=== PATIENT | male | born 1955 | race Caucasian/White ===

== ENCOUNTER 2016-07-31 22:06 | Inpatient (IN) | payer MEDICARE, SELFPAY ==
[~2016-07-31] VITALS: Ht 172.7 cm; Wt 77.5 kg
[~2016-07-31 22:06] MED LIST: ASPI81 PO; CARB200T6 PO; CLON.1 PO; CLON2 PO; LEVE500T53 PO; QUET300T2 PO
[2016-08-01 02:36] VITALS: BP 139/62
[2016-08-01] MEDS ORDERED: ZOLPIDEM TARTRATE 10 MG TABLET PO PRN (03:15)
[2016-08-01] MEDS: HALOPERIDOL 5 MG TABLET PO PRN ×2 (07:30→11:37)
[2016-08-01] MEDS: LORazepam 2 MG TABLET PO PRN ×2 (07:30→11:37)
[2016-08-01 08:14] VITALS: BP 148/67
[2016-08-01] MEDS: CarBAMazepine 200 MG TABLET PO SCH ×2 (10:46→16:25)
[2016-08-01] MEDS: ASPIRIN 81 MG EC TABLET PO SCH (10:46)
[2016-08-01] MEDS: LevETIRAcetam 500 MG TABLET PO SCH ×2 (10:46→16:25)
[2016-08-01] MEDS ORDERED: TraMADol HCL 50 MG TABLET PO PRN (15:00)
[2016-08-01] MEDS ORDERED: IBUPROFEN 600 MG TABLET PO PRN (15:00)
[2016-08-01] MEDS ORDERED: ACETAMINOPHEN 325 MG TABLET PO PRN (15:00)
[2016-08-01 16:00] VITALS: BP 129/72
[2016-08-01] MEDS: ClonazePAM 1 MG TABLET PO SCH ×2 (17:38→20:43)
[2016-08-01] MEDS: QUEtiapine FUMARATE 300 MG TABLET PO SCH (20:43)
[2016-08-02 06:34] VITALS: BP 140/80
[2016-08-02 08:39] VITALS: BP 137/88
[2016-08-02] MEDS: LevETIRAcetam 500 MG TABLET PO SCH ×2 (09:09→16:24)
[2016-08-02] MEDS: ClonazePAM 1 MG TABLET PO SCH ×2 (09:10→20:48)
[2016-08-02] MEDS: ASPIRIN 81 MG EC TABLET PO SCH (09:10)
[2016-08-02] MEDS: CarBAMazepine 200 MG TABLET PO SCH ×2 (09:10→16:24)
[2016-08-02] MEDS: LamoTRIgine 25 MG TABLET PO SCH ×2 (11:14→16:24)
[2016-08-02 16:00] VITALS: BP 135/79
[2016-08-02] MEDS: QUEtiapine FUMARATE 300 MG TABLET PO SCH (20:48)
[2016-08-03 04:43] VITALS: BP 130/68
[2016-08-03 08:29] VITALS: BP 135/85
[2016-08-03] MEDS ORDERED: LAMO25TA66 PO (08:46)
[2016-08-03] MEDS: CarBAMazepine 200 MG TABLET PO SCH (08:51)
[2016-08-03] MEDS: ASPIRIN 81 MG EC TABLET PO SCH (08:51)
[2016-08-03] MEDS: LamoTRIgine 25 MG TABLET PO SCH (08:51)
[2016-08-03] MEDS: LevETIRAcetam 500 MG TABLET PO SCH (08:52)
[2016-08-03] MEDS: ClonazePAM 1 MG TABLET PO SCH (08:52)
== END 2016-08-03 10:00 | disposition home or self-care (01) | DRG 885 ==
LOC: B3A 08-01 03:17
DX: F25.1 Schizoaffective disorder, depressive type (principal); R45.851 Suicidal ideations; D64.9 Anemia, unspecified; F15.90 Other stimulant use, unspecified, uncomplicated; G40.909 Epilepsy, unspecified, not intractable, without status epilepticus; I10 Essential (primary) hypertension; M17.9 Osteoarthritis of knee, unspecified; Z79.899 Other long term (current) drug therapy; Z80.0 Family history of malignant neoplasm of digestive organs; Z80.1 Family history of malignant neoplasm of trachea, bronchus and lung
CPT/HCPCS: 87081

== ENCOUNTER 2017-01-14 14:15 | Inpatient (IN) | payer MEDICARE, SELFPAY ==
[~2017-01-14] VITALS: Ht 172.7 cm; Wt 82.9 kg
[~2017-01-14 14:15] MED LIST changes: -CLON.1 PO; +LAMO25TA66 PO
[2017-01-14 14:37] LABS: GLUCOSE,POINT OF CARE 106 MG/DL (70-110)
[2017-01-14 15:05] LABS: BASOPHILS % (AUTO) 0.5 % (0.0-2.0); EOSINOPHILS % (AUTO) 1.1 % (1.0-6.0); HEMATOCRIT 37.3 % (41-53); HEMOGLOBIN 12.9 g/dL (13.5-17.5); LYMPHOCYTES # (AUTO) 0.8 K/uL (1.0-4.8); LYMPHOCYTES % (AUTO) 16.7 % (22.0-44.0); MEAN CORPUSCULAR HGB CONC 34.5 G/dL (31.0-37.0); MEAN CORPUSCULAR VOLUME 96 fL (80-100); MONOCYTES # (AUTO) 0.4 K/uL (0.1-1.0); MONOCYTES % (AUTO) 7.3 % (2.0-9.0); NEUTROPHILS # (AUTO) 3.6 K/uL (1.8-7.7); NEUTROPHILS % (AUTO) 74.4 % (40.0-70.0); PLATELET COUNT (AUTO) 374 K/uL (150-450); RED CELL DISTRIBUTION WIDTH 13.1 % (11.5-14.5); WHITE BLOOD COUNT (AUTO) 4.9 K/uL (4.5-11.0)
[2017-01-14 15:13] LABS: ANION GAP 9 mmol/L (8-16); CALCIUM, TOTAL 8.4 mg/dL (8.8-10.5); CARBON DIOXIDE 28 mmol/L (22-29); CHLORIDE 106 mmol/L (98-107); CREATININE 1.23 mg/dL (0.60-1.30); GLOMERULAR FILTR. RATE CALC 60 mL/min (>60); POTASSIUM 4.2 mmol/L (3.5-5.1); SODIUM SERUM 143 mmol/L (136-145); UREA NITROGEN, BLOOD 26 mg/dL (7-18)
[2017-01-14 15:20] LABS: ALANINE AMINOTRANSFERASE 21 U/L (12-78); ALBUMIN 3.4 g/dL (3.4-5.0); ASPARTATE AMINOTRANSFERASE 22 U/L (15-37); BILIRUBIN,TOTAL 0.4 mg/dL (0.1-1.0); TOTAL PROTEIN, SERUM 6.6 g/dL (6.4-8.2)
[2017-01-14 15:21] LABS: ACETAMINOPHEN < 2 mcg/mL (10-30)
[2017-01-14 15:37] LABS: SALICYLATE < 2.8 mg/dL (2.8-20.0)
[2017-01-14] MEDS ORDERED: KETOROLAC TROMETHAMINE 30 MG/ML VIAL IVP ONE (18:00)
[2017-01-14] MEDS: DIAZEPAM 10 MG TABLET PO PRN (21:40)
[2017-01-14] MEDS: QUEtiapine FUMARATE 100 MG TABLET PO PRN (22:18)
[2017-01-14] MEDS: ZOLPIDEM TARTRATE 10 MG TABLET PO PRN (22:19)
[2017-01-14] MEDS ORDERED: ACETAMINOPHEN 325 MG TABLET PO PRN (22:30)
[2017-01-14] MEDS ORDERED: IBUPROFEN 600 MG TABLET PO PRN (22:30)
[2017-01-15] VITALS (7 sets, daily range): BP systolic 125–138; BP diastolic 62–85
[2017-01-15] MEDS ORDERED: DIAZEPAM 10 MG TABLET PO PRN (07:00)
[2017-01-15] MEDS: LevETIRAcetam 500 MG TABLET PO SCH ×2 (08:37→15:59)
[2017-01-15] MEDS: DIAZEPAM 10 MG TABLET PO SCH ×4 (08:37→20:32)
[2017-01-15] MEDS: ASPIRIN 81 MG CHEWABLE TABLET PO SCH (08:37)
[2017-01-15] MEDS ORDERED: CloNIDine HCL 0.1 MG TABLET PO PRN (11:00)
[2017-01-15] MEDS: CloNIDine HCL 0.1 MG TABLET PO SCH ×3 (12:03→20:59)
[2017-01-15] MEDS: DIAZEPAM 10 MG TABLET PO PRN (13:13)
[2017-01-15] MEDS: QUEtiapine FUMARATE 100 MG TABLET PO PRN ×2 (13:13→20:36)
[2017-01-15] MEDS: TraMADol HCL 50 MG TABLET PO PRN (15:59)
[2017-01-15] MEDS: CarBAMazepine 200 MG TABLET PO SCH (21:25)
[2017-01-15] MEDS ORDERED: HALOPERIDOL LACTATE 5 MG/ML VIAL IM ONE (21:30)
[2017-01-15] MEDS ORDERED: LORazepam 2 MG/ML VIAL IM ONE (21:30)
[2017-01-15] MEDS ORDERED: DiphenhydrAMINE HCL 50 MG/ML VIAL IM ONE (21:30)
[2017-01-15] MEDS: QUEtiapine FUMARATE 300 MG TABLET PO SCH (21:46)
[2017-01-15] MEDS ORDERED: IBUPROFEN 600 MG TABLET PO ONE (22:30)
[2017-01-16] MEDS: TraMADol HCL 50 MG TABLET PO PRN ×2 (00:19→14:12)
[2017-01-16] MEDS: ZOLPIDEM TARTRATE 10 MG TABLET PO PRN (00:19)
[2017-01-16] MEDS: CloNIDine HCL 0.1 MG TABLET PO SCH (06:27)
[2017-01-16 08:05] VITALS: BP 119/61
[2017-01-16] MEDS: LevETIRAcetam 500 MG TABLET PO SCH ×2 (08:29→16:38)
[2017-01-16] MEDS: CarBAMazepine 200 MG TABLET PO SCH ×2 (08:29→16:38)
[2017-01-16] MEDS: DIAZEPAM 10 MG TABLET PO SCH (08:29)
[2017-01-16] MEDS: ASPIRIN 81 MG CHEWABLE TABLET PO SCH (08:29)
[2017-01-16] MEDS: ClonazePAM 1 MG TABLET PO SCH (16:38)
[2017-01-16] MEDS: QUEtiapine FUMARATE 300 MG TABLET PO SCH (20:29)
[2017-01-16 21:48] VITALS: BP 105/60
[2017-01-16 21:54] VITALS: BP 105/60
[2017-01-17 03:52] VITALS: BP 146/93
[2017-01-17 04:02] VITALS: BP 146/93
[2017-01-17 04:07] LABS: HEPATITIS Bs ANTIGEN SCREEN P Negative (Negative); HEPATITIS C AB SCREEN <0.1 s/co ratio (0.0-0.9)
[2017-01-17] MEDS ORDERED: DIAZEPAM 5 MG TABLET PO PRN (07:00)
[2017-01-17] MEDS: LevETIRAcetam 500 MG TABLET PO SCH ×2 (08:09→16:40)
[2017-01-17 08:10] VITALS: BP 123/65
[2017-01-17] MEDS: ASPIRIN 81 MG CHEWABLE TABLET PO SCH (08:10)
[2017-01-17] MEDS: ClonazePAM 1 MG TABLET PO SCH ×2 (08:10→16:40)
[2017-01-17] MEDS: CarBAMazepine 200 MG TABLET PO SCH ×2 (08:10→16:40)
[2017-01-17 08:11] VITALS: BP 123/65
[2017-01-17] MEDS ORDERED: DIAZEPAM 5 MG TABLET PO SCH (09:00)
[2017-01-17] MEDS: QUEtiapine FUMARATE 100 MG TABLET PO PRN (14:19)
[2017-01-17 16:51] VITALS: BP 137/62
[2017-01-17 16:55] VITALS: BP 137/62
[2017-01-17] MEDS: QUEtiapine FUMARATE 300 MG TABLET PO SCH (20:21)
[2017-01-18 04:04] VITALS: BP 140/82
[2017-01-18] MEDS: TraMADol HCL 50 MG TABLET PO PRN (04:07)
[2017-01-18 04:21] VITALS: BP 140/82
[2017-01-18] MEDS ORDERED: DIAZEPAM 5 MG TABLET PO PRN (07:00)
[2017-01-18] MEDS: ASPIRIN 81 MG CHEWABLE TABLET PO SCH (08:56)
[2017-01-18] MEDS: ClonazePAM 1 MG TABLET PO SCH ×2 (08:56→16:16)
[2017-01-18] MEDS: LevETIRAcetam 500 MG TABLET PO SCH ×2 (08:56→16:16)
[2017-01-18] MEDS: CarBAMazepine 200 MG TABLET PO SCH ×2 (08:57→16:14)
[2017-01-18 10:53] VITALS: BP_SYST 138; BP_SYST 143; BP_DIAS 80; BP_DIAS 83
[2017-01-18 17:00] VITALS: BP_SYST 136; BP_DIAS 25; BP_DIAS 75
[2017-01-18] MEDS: QUEtiapine FUMARATE 300 MG TABLET PO SCH (20:47)
[2017-01-19 01:40] VITALS: BP 164/90
[2017-01-19] MEDS: QUEtiapine FUMARATE 100 MG TABLET PO PRN (01:45)
[2017-01-19] MEDS: TraMADol HCL 50 MG TABLET PO PRN ×2 (01:45→08:11)
[2017-01-19 08:11] VITALS: BP 106/78
[2017-01-19] MEDS: LevETIRAcetam 500 MG TABLET PO SCH ×2 (08:11→16:11)
[2017-01-19] MEDS: ClonazePAM 1 MG TABLET PO SCH ×2 (08:11→16:11)
[2017-01-19] MEDS: ASPIRIN 81 MG CHEWABLE TABLET PO SCH (08:12)
[2017-01-19] MEDS: CarBAMazepine 200 MG TABLET PO SCH ×2 (08:12→16:11)
[2017-01-19 09:11] VITALS: BP 117/82
[2017-01-19 17:31] VITALS: BP 118/60
[2017-01-19] MEDS: QUEtiapine FUMARATE 300 MG TABLET PO SCH (20:01)
[2017-01-20 04:20] VITALS: BP 168/99
[2017-01-20] MEDS: TraMADol HCL 50 MG TABLET PO PRN (04:36)
[2017-01-20 08:00] VITALS: BP 162/76
[2017-01-20] MEDS: CarBAMazepine 200 MG TABLET PO SCH ×2 (09:09→16:34)
[2017-01-20] MEDS: ClonazePAM 1 MG TABLET PO SCH ×2 (09:09→16:34)
[2017-01-20] MEDS: LevETIRAcetam 500 MG TABLET PO SCH ×2 (09:10→16:34)
[2017-01-20] MEDS: ASPIRIN 81 MG CHEWABLE TABLET PO SCH (09:10)
[2017-01-20 16:56] VITALS: BP 132/72
[2017-01-20] MEDS: QUEtiapine FUMARATE 300 MG TABLET PO SCH (20:06)
[2017-01-21 01:45] VITALS: BP 130/77
[2017-01-21] MEDS: TraMADol HCL 50 MG TABLET PO PRN ×2 (02:02→08:16)
[2017-01-21] MEDS: ZOLPIDEM TARTRATE 10 MG TABLET PO PRN (02:03)
[2017-01-21 08:10] VITALS: BP 151/66
[2017-01-21] MEDS: ClonazePAM 1 MG TABLET PO SCH (08:15)
[2017-01-21] MEDS: ASPIRIN 81 MG CHEWABLE TABLET PO SCH (08:15)
[2017-01-21] MEDS: CarBAMazepine 200 MG TABLET PO SCH (08:15)
[2017-01-21] MEDS: LevETIRAcetam 500 MG TABLET PO SCH (08:15)
[2017-01-21 08:35] VITALS: BP 151/66
[2017-01-21] MEDS ORDERED: QUET300T2 PO (08:40)
== END 2017-01-21 12:30 | disposition home or self-care (01) | DRG 885 ==
LOC: EMS 14:17 → 3EX 20:41
DX: F25.1 Schizoaffective disorder, depressive type (principal); R45.851 Suicidal ideations; G40.909 Epilepsy, unspecified, not intractable, without status epilepticus; F19.20 Other psychoactive substance dependence, uncomplicated; I10 Essential (primary) hypertension; F43.10 Post-traumatic stress disorder, unspecified; F41.9 Anxiety disorder, unspecified; G89.29 Other chronic pain; M54.9 Dorsalgia, unspecified; E78.5 Hyperlipidemia, unspecified; D64.9 Anemia, unspecified; F11.10 Opioid abuse, uncomplicated; Z79.899 Other long term (current) drug therapy; Z79.82 Long term (current) use of aspirin; Z91.5 Personal history of self-harm; Z82.5 Family history of asthma and other chronic lower respiratory diseases
CPT/HCPCS: 70450; 72170; 73552; 80074; 82962; 87081; 93005; 96374; 99285; G0480; G0481; J1200; J1630; J1885; J2060

== ENCOUNTER 2017-06-24 22:20 | Inpatient (IN) | payer MEDICARE, SELFPAY ==
[~2017-06-24] VITALS: Ht 172.7 cm; Wt 78.8 kg
[~2017-06-24 22:20] MED LIST changes: -LAMO25TA66 PO
[2017-06-25] MEDS ORDERED: LORazepam 2 MG TABLET PO PRN (00:45)
[2017-06-25] MEDS ORDERED: ZOLPIDEM TARTRATE 10 MG TABLET PO PRN (00:45)
[2017-06-25] MEDS ORDERED: HALOPERIDOL 5 MG TABLET PO PRN (00:45)
[2017-06-25] MEDS ORDERED: INFLUENZA VIRUS VACCINE QVS 2017-18 (3YR+)/PF 60 MCG/0.5 ML SYRINGE IM ONE (01:45)
[2017-06-25 02:02] VITALS: BP 128/70
[2017-06-25] MEDS ORDERED: ACETAMINOPHEN 325 MG TABLET PO PRN (08:30)
[2017-06-25] MEDS ORDERED: ASPIRIN 81 MG EC TABLET PO ONE (08:45)
[2017-06-25] MEDS: ASPIRIN 81 MG EC TABLET PO SCH (09:00)
[2017-06-25 09:09] VITALS: BP 105/68
[2017-06-25] MEDS: CarBAMazepine 200 MG TABLET PO SCH ×2 (09:18→16:20)
[2017-06-25] MEDS: LevETIRAcetam 500 MG TABLET PO SCH ×2 (09:19→16:20)
[2017-06-25] MEDS: ClonazePAM 1 MG TABLET PO SCH ×2 (09:32→16:23)
[2017-06-25 16:01] VITALS: BP 151/67
[2017-06-25 16:10] VITALS: BP 133/78
[2017-06-25 18:32] VITALS: BP 140/82
[2017-06-25] MEDS: IBUPROFEN 600 MG TABLET PO PRN (18:32)
[2017-06-25 19:53] VITALS: BP 151/67
[2017-06-25] MEDS ORDERED: QUEtiapine FUMARATE 300 MG TABLET PO SCH (21:00)
[2017-06-26 00:24] VITALS: BP 135/84
[2017-06-26 08:03] VITALS: BP 129/74
[2017-06-26] MEDS: ASPIRIN 81 MG EC TABLET PO SCH (08:33)
[2017-06-26] MEDS: LevETIRAcetam 500 MG TABLET PO SCH ×2 (08:33→16:30)
[2017-06-26] MEDS: CarBAMazepine 200 MG TABLET PO SCH ×2 (08:33→16:30)
[2017-06-26] MEDS: ClonazePAM 1 MG TABLET PO SCH ×2 (08:33→16:30)
[2017-06-26 08:44] LABS: BASOPHILS % (AUTO) 0.4 % (0.0-2.0); EOSINOPHILS % (AUTO) 1.2 % (1.0-6.0); HEMATOCRIT 41.4 % (41-53); HEMOGLOBIN 13.8 g/dL (13.5-17.5); LYMPHOCYTES # (AUTO) 0.6 K/uL (1.0-4.8); LYMPHOCYTES % (AUTO) 8.5 % (22.0-44.0); MEAN CORPUSCULAR HGB CONC 33.4 G/dL (31.0-37.0); MEAN CORPUSCULAR VOLUME 96 fL (80-100); MONOCYTES # (AUTO) 0.3 K/uL (0.1-1.0); MONOCYTES % (AUTO) 3.7 % (2.0-9.0); NEUTROPHILS # (AUTO) 6.4 K/uL (1.8-7.7); PLATELET COUNT (AUTO) 364 K/uL (150-450); RED BLOOD CELL COUNT(AUTO) 4.32 MIL/uL (4.50-5.90); RED CELL DISTRIBUTION WIDTH 14.6 % (11.5-14.5)
[2017-06-26 08:46] LABS: NEUTROPHILS % (AUTO) 86.2 % (40.0-70.0)
[2017-06-26 08:59] LABS: HEMOGLOBIN A1C 5.6 % (4.5-6.2)
[2017-06-26 09:11] LABS: ALANINE AMINOTRANSFERASE 23 U/L (12-78); ALBUMIN 3.8 g/dL (3.4-5.0); ALKALINE PHOSPHATASE 113 U/L (46-116); ANION GAP 6 mmol/L (8-16); ASPARTATE AMINOTRANSFERASE 24 U/L (15-37); BILIRUBIN,TOTAL 0.2 mg/dL (0.1-1.0); CARBON DIOXIDE 30 mmol/L (22-29); CHLORIDE 102 mmol/L (98-107); CHOL/HDL RATIO 4.1 (4.2-7.3); CHOLESTEROL 252 mg/dL (131-200); CREATININE 1.18 mg/dL (0.60-1.30); FREE T4 (FREE THYROXINE) 0.62 ng/dL (0.76-1.46); GLOMERULAR FILTR. RATE CALC > 60 mL/min (>60); GLUCOSE,RANDOM 76 mg/dL (70-110); HDL CHOLESTEROL 61 mg/dL (40-60); LDL CHOL (CALC.) 171 mg/dL (0-130); POTASSIUM 4.3 mmol/L (3.5-5.1); SODIUM SERUM 138 mmol/L (136-145); THYROID STIMULATING HORMONE 3.26 uIU/mL (0.36-3.74); TOTAL PROTEIN, SERUM 8.1 g/dL (6.4-8.2); TRIGLYCERIDES 98 mg/dL (15-150); UREA NITROGEN, BLOOD 21 mg/dL (7-18)
[2017-06-26] MEDS: IBUPROFEN 600 MG TABLET PO PRN (11:16)
[2017-06-26 16:10] VITALS: BP 117/66
[2017-06-28] MEDS ORDERED: HALOPERIDOL 5 MG TABLET PO PRN (12:15)
[2017-06-28] MEDS ORDERED: LORazepam 2 MG TABLET PO PRN (12:15)
[2017-06-28] MEDS ORDERED: ZOLPIDEM TARTRATE 10 MG TABLET PO PRN (12:15)
== END 2017-06-26 18:44 | disposition home or self-care (01) | DRG 885 ==
LOC: B2X 06-25 01:00
PROC: 3E0234Z Introduction of Serum, Toxoid and Vaccine into Muscle, Percutaneous Approach (ICD-10-PCS; principal; 2017-06-25)
DX: F25.0 Schizoaffective disorder, bipolar type (principal); R56.9 Unspecified convulsions; D64.9 Anemia, unspecified; E78.5 Hyperlipidemia, unspecified; F41.9 Anxiety disorder, unspecified; S00.93XA Contusion of unspecified part of head, initial encounter; Z96.651 Presence of right artificial knee joint; M17.10 Unilateral primary osteoarthritis, unspecified knee; X58.XXXA Exposure to other specified factors, initial encounter; Y93.89 Activity, other specified; Y92.89 Other specified places as the place of occurrence of the external cause; Z80.0 Family history of malignant neoplasm of digestive organs; Z80.1 Family history of malignant neoplasm of trachea, bronchus and lung; Z23 Encounter for immunization
CPT/HCPCS: 83036; 84439; 84443; 90471; 99285

== ENCOUNTER 2017-07-23 13:05 | Inpatient (IN) | payer MEDICARE, SELFPAY ==
[~2017-07-23] VITALS: Ht 172.7 cm; Wt 80.7 kg
[2017-07-23 14:50] LABS: AMPHET/METH SCREEN,URINE NEGATIVE (NEGATIVE); BARBITURATE SCREEN, URINE NEGATIVE (NEGATIVE); BENZODIAZEPINES SCREEN,URINE POSITIVE (NEGATIVE); CANNABINOID SCREEN,URINE NEGATIVE (NEGATIVE); COCAINE SCREEN,URINE NEGATIVE (NEGATIVE); METHADONE SCREEN, URINE NEGATIVE (NEGATIVE); OPIATE SCREEN,URINE NEGATIVE (NEGATIVE); PHENCYCLIDINE SCREEN,URINE NEGATIVE (NEGATIVE)
[2017-07-23 15:10] LABS: BASOPHILS % (AUTO) 1.1 % (0.0-2.0); EOSINOPHILS % (AUTO) 5.9 % (1.0-6.0); HEMATOCRIT 38.3 % (41-53); LYMPHOCYTES % (AUTO) 20.5 % (22.0-44.0); MEAN CORPUSCULAR HEMOGLOBIN 32.1 pg (26.0-34.0); MEAN CORPUSCULAR VOLUME 95 fL (80-100); MONOCYTES # (AUTO) 0.4 K/uL (0.1-1.0); MONOCYTES % (AUTO) 8.5 % (2.0-9.0); NEUTROPHILS # (AUTO) 3.3 K/uL (1.8-7.7); PLATELET COUNT (AUTO) 374 K/uL (150-450); RED BLOOD CELL COUNT(AUTO) 4.06 MIL/uL (4.50-5.90); RED CELL DISTRIBUTION WIDTH 13.9 % (11.5-14.5)
[2017-07-23 15:12] LABS: ANION GAP 10 mmol/L (8-16); CALCIUM, TOTAL 8.5 mg/dL (8.8-10.5); CARBON DIOXIDE 27 mmol/L (22-29); CHLORIDE 101 mmol/L (98-107); CREATININE 1.59 mg/dL (0.60-1.30); GLOMERULAR FILTR. RATE CALC 44 mL/min (>60); GLUCOSE,RANDOM 117 mg/dL (70-110); SODIUM SERUM 138 mmol/L (136-145); UREA NITROGEN, BLOOD 34 mg/dL (7-18)
[2017-07-23] MEDS ORDERED: LORazepam 2 MG TABLET PO PRN (15:15)
[2017-07-23] MEDS ORDERED: ZOLPIDEM TARTRATE 10 MG TABLET PO PRN (15:15)
[2017-07-23] MEDS ORDERED: HALOPERIDOL 5 MG TABLET PO PRN (15:15)
[2017-07-23 15:19] LABS: ALANINE AMINOTRANSFERASE 37 U/L (12-78); ALBUMIN 4.1 g/dL (3.4-5.0); ALKALINE PHOSPHATASE 103 U/L (46-116); ASPARTATE AMINOTRANSFERASE 30 U/L (15-37); BILIRUBIN,TOTAL 0.2 mg/dL (0.1-1.0); TOTAL PROTEIN, SERUM 8.2 g/dL (6.4-8.2)
[2017-07-23] MEDS ORDERED: QUET200T PO (15:20)
[2017-07-23] MEDS ORDERED: LORazepam 2 MG TABLET PO ONE (15:30)
[2017-07-23] MEDS ORDERED: ACETAMINOPHEN 500 MG TABLET PO ONE (15:30)
[2017-07-23 17:37] VITALS: BP 145/74
[2017-07-23] MEDS: LevETIRAcetam 500 MG TABLET PO SCH (17:45)
[2017-07-23] MEDS: CarBAMazepine 200 MG TABLET PO SCH (17:45)
[2017-07-23] MEDS ORDERED: PNEUMOCOCCAL VACCINE POLYVALENT 0.5 ML VIAL [PPSV23] IM ONE (18:15)
[2017-07-23] MEDS ORDERED: IBUPROFEN 400 MG TABLET PO PRN (20:45)
[2017-07-23] MEDS ORDERED: ACETAMINOPHEN 325 MG TABLET PO PRN (20:45)
[2017-07-24] VITALS: BP 144/69
[2017-07-24] MEDS: ClonazePAM 1 MG TABLET PO SCH ×3 (00:29→20:28)
[2017-07-24] MEDS: QUEtiapine FUMARATE 200 MG TABLET PO SCH ×2 (00:29→20:28)
[2017-07-24 08:08] VITALS: BP 137/70
[2017-07-24 08:48] LABS: CHOL/HDL RATIO 4.4 (4.2-7.3)
[2017-07-24] MEDS: ASPIRIN 81 MG EC TABLET PO SCH (08:48)
[2017-07-24] MEDS: LevETIRAcetam 500 MG TABLET PO SCH ×2 (08:49→16:32)
[2017-07-24] MEDS: CarBAMazepine 200 MG TABLET PO SCH ×2 (08:49→16:32)
[2017-07-24 16:01] VITALS: BP 137/76
[2017-07-25 00:09] VITALS: BP 133/69
[2017-07-25 08:00] VITALS: BP 142/75
[2017-07-25] MEDS: LevETIRAcetam 500 MG TABLET PO SCH ×2 (08:11→16:33)
[2017-07-25] MEDS: CarBAMazepine 200 MG TABLET PO SCH ×2 (08:12→16:33)
[2017-07-25] MEDS: ClonazePAM 1 MG TABLET PO SCH ×2 (08:12→20:31)
[2017-07-25] MEDS: ASPIRIN 81 MG EC TABLET PO SCH (08:12)
[2017-07-25 16:14] VITALS: BP 140/86
[2017-07-25] MEDS: QUEtiapine FUMARATE 200 MG TABLET PO SCH (20:31)
[2017-07-26] MEDS: ASPIRIN 81 MG EC TABLET PO SCH (08:06)
[2017-07-26] MEDS: CarBAMazepine 200 MG TABLET PO SCH (08:06)
[2017-07-26] MEDS: ClonazePAM 1 MG TABLET PO SCH (08:06)
[2017-07-26] MEDS: LevETIRAcetam 500 MG TABLET PO SCH (08:06)
[2017-07-26 09:26] VITALS: BP 148/77
[2017-07-26] MEDS ORDERED: ASPI81 PO (09:59)
== END 2017-07-26 10:15 | disposition home or self-care (01) | DRG 885 ==
LOC: EMS 13:07 → B2X 16:02
DX: F25.1 Schizoaffective disorder, depressive type (principal); R45.851 Suicidal ideations; G40.909 Epilepsy, unspecified, not intractable, without status epilepticus; E78.5 Hyperlipidemia, unspecified; F41.9 Anxiety disorder, unspecified; G89.29 Other chronic pain; I10 Essential (primary) hypertension; M19.90 Unspecified osteoarthritis, unspecified site; Z96.651 Presence of right artificial knee joint; Z80.1 Family history of malignant neoplasm of trachea, bronchus and lung
CPT/HCPCS: 87081; 99285; G0480; G0482

== ENCOUNTER 2017-08-24 01:45 | Inpatient (IN) | payer MEDICARE ==
[~2017-08-24] VITALS: Ht 172.7 cm; Wt 77.6 kg
[~2017-08-24 01:45] MED LIST changes: +QUET200T PO; -QUET300T2 PO
[2017-08-24] MEDS ORDERED: ZOLPIDEM TARTRATE 10 MG TABLET PO PRN (02:15)
[2017-08-24] MEDS ORDERED: HALOPERIDOL 5 MG TABLET PO PRN (02:15)
[2017-08-24] MEDS ORDERED: LORazepam 2 MG TABLET PO PRN (02:15)
[2017-08-24 02:27] VITALS: BP 125/64
[2017-08-24] MEDS ORDERED: -PHARMACY VACCINE NOTE- MISC ONE (03:45)
[2017-08-24 08:05] VITALS: BP 145/95
[2017-08-24] MEDS ORDERED: IBUPROFEN 400 MG TABLET PO PRN (10:15)
[2017-08-24] MEDS ORDERED: ACETAMINOPHEN 325 MG TABLET PO PRN (10:15)
[2017-08-24] MEDS ORDERED: LevETIRAcetam 500 MG TABLET ONE (11:58)
[2017-08-24] MEDS ORDERED: CarBAMazepine 200 MG TABLET ONE (12:00)
[2017-08-24 12:31] LABS: AMPHET/METH SCREEN,URINE NEGATIVE (NEGATIVE); BARBITURATE SCREEN, URINE NEGATIVE (NEGATIVE); BENZODIAZEPINES SCREEN,URINE POSITIVE (NEGATIVE); CANNABINOID SCREEN,URINE NEGATIVE (NEGATIVE); COCAINE SCREEN,URINE NEGATIVE (NEGATIVE); METHADONE SCREEN, URINE NEGATIVE (NEGATIVE); OPIATE SCREEN,URINE NEGATIVE (NEGATIVE); PHENCYCLIDINE SCREEN,URINE NEGATIVE (NEGATIVE)
[2017-08-24 12:44] LABS: APPEARANCE,URINE CLEAR (CLEAR); BILIRUBIN,URINE NEGATIVE (NEGATIVE); GLUCOSE, URINE (UA) NEGATIVE (NEGATIVE); KETONES,URINE NEGATIVE (NEGATIVE); LEUKOCYTE ESTERASE ,URINE NEGATIVE (NEGATIVE); NITRATE,URINE NEGATIVE (NEGATIVE); OCCULT BLOOD,URINE NEGATIVE (NEGATIVE); PROTEIN,URINE NEGATIVE (NEGATIVE); UROBILINOGEN,URINE 0.2 mg/dL (<=1.0)
[2017-08-24] MEDS: LevETIRAcetam 500 MG TABLET PO SCH (16:17)
[2017-08-24] MEDS: CarBAMazepine 200 MG TABLET PO SCH (16:18)
[2017-08-24] MEDS ORDERED: LevETIRAcetam 500 MG TABLET PO SCH (17:00)
[2017-08-24] MEDS ORDERED: CarBAMazepine 200 MG TABLET PO SCH (17:00)
[2017-08-24 18:27] VITALS: BP 133/76
[2017-08-24] MEDS ORDERED: QUEtiapine FUMARATE 200 MG TABLET PO SCH (21:00)
[2017-08-25 03:47] VITALS: BP 162/89
[2017-08-25] MEDS: CarBAMazepine 200 MG TABLET PO SCH (08:14)
[2017-08-25] MEDS: LevETIRAcetam 500 MG TABLET PO SCH (08:15)
[2017-08-25] MEDS ORDERED: ASPIRIN 81 MG CHEWABLE TABLET PO SCH (09:00)
== END 2017-08-25 13:45 | disposition home or self-care (01) | DRG 885 ==
LOC: 3EX 01:45
DX: F25.1 Schizoaffective disorder, depressive type (principal); N17.9 Acute kidney failure, unspecified; R45.851 Suicidal ideations; G40.909 Epilepsy, unspecified, not intractable, without status epilepticus; D64.9 Anemia, unspecified; E78.5 Hyperlipidemia, unspecified; M19.90 Unspecified osteoarthritis, unspecified site; Z96.651 Presence of right artificial knee joint; Z80.1 Family history of malignant neoplasm of trachea, bronchus and lung
CPT/HCPCS: 80307; 87081

== ENCOUNTER 2018-05-20 14:15 | Inpatient (IN) | payer MEDICARE ==
[~2018-05-20] VITALS: Ht 172.7 cm; Wt 80.9 kg
[~2018-05-20 14:15] MED LIST changes: -CLON2 PO; -QUET200T PO
[2018-05-20 14:38] VITALS: BP 147/80
[2018-05-20 16:21] VITALS: BP 144/75
[2018-05-20] MEDS: HALOPERIDOL 5 MG TABLET PO PRN ×2 (16:35→20:37)
[2018-05-20] MEDS: LORazepam 2 MG TABLET PO PRN ×2 (16:35→20:37)
[2018-05-20] MEDS: LevETIRAcetam 500 MG TABLET PO SCH (17:24)
[2018-05-20] MEDS ORDERED: GuaiFENesin/D-METHORPHAN [SUGAR-FREE] 200-20MG/10 ML SYRUP UDCUP PO PRN (19:45)
[2018-05-20] MEDS ORDERED: ALBUTEROL SULFATE HFA 90 MCG/PUFF 8 GM INHALER IH PRN (19:45)
[2018-05-20] MEDS ORDERED: CloNIDine HCL 0.1 MG TABLET PO PRN (19:45)
[2018-05-20] MEDS ORDERED: ACETAMINOPHEN 325 MG TABLET PO PRN (19:45)
[2018-05-20] MEDS ORDERED: NICOTINE 14 MG/24 HOUR PATCH TD PRN (19:45)
[2018-05-20] MEDS ORDERED: LOPERAMIDE HCL 2 MG CAPSULE PO PRN (19:45)
[2018-05-20] MEDS ORDERED: ONDANSETRON HCL 4 MG TABLET PO PRN (19:45)
[2018-05-20] MEDS ORDERED: PETROLATUM,WHITE 71 GM JELLY TP PRN (19:45)
[2018-05-20] MEDS ORDERED: MAGNESIUM HYDROXIDE SUSPENSION 30 ML UDCUP PO PRN (19:45)
[2018-05-20] MEDS ORDERED: MAG HYDROX/AL HYDROX/SIMETH ES 30 ML SUSPENSION UDCUP PO PRN (19:45)
[2018-05-20] MEDS ORDERED: DOCUSATE SODIUM 100 MG CAPSULE PO PRN (19:45)
[2018-05-20] MEDS: ZOLPIDEM TARTRATE 10 MG TABLET PO PRN (20:32)
[2018-05-20 21:34] LABS: GLUCOMETER DEV NAME(LOC) BV2X.; GLUCOSE,POINT OF CARE 232 MG/DL (70-110)
[2018-05-21 04:18] VITALS: BP 137/76
[2018-05-21] MEDS: LORazepam 2 MG TABLET PO PRN ×2 (06:45→13:52)
[2018-05-21] MEDS: HALOPERIDOL 5 MG TABLET PO PRN ×2 (06:45→13:52)
[2018-05-21 07:55] LABS: BASOPHILS % (AUTO) 0.4 % (0.0-2.0); EOSINOPHILS % (AUTO) 1.9 % (1.0-6.0); HEMATOCRIT 40.5 % (41-53); HEMOGLOBIN 14.2 g/dL (13.5-17.5); LYMPHOCYTES % (AUTO) 21.8 % (22.0-44.0); MEAN CORPUSCULAR HEMOGLOBIN 34.4 pg (26.0-34.0); MEAN CORPUSCULAR HGB CONC 35.2 G/dL (31.0-37.0); MEAN CORPUSCULAR VOLUME 98 fL (80-100); MONOCYTES # (AUTO) 0.3 K/uL (0.1-1.0); MONOCYTES % (AUTO) 6.8 % (2.0-9.0); NEUTROPHILS # (AUTO) 3.1 K/uL (1.8-7.7); NEUTROPHILS % (AUTO) 69.1 % (40.0-70.0); PLATELET COUNT (AUTO) 340 K/uL (150-450); RED BLOOD CELL COUNT(AUTO) 4.14 MIL/uL (4.50-5.90); RED CELL DISTRIBUTION WIDTH 13.3 % (11.5-14.5)
[2018-05-21] MEDS: CarBAMazepine 200 MG TABLET PO SCH ×2 (08:14→16:02)
[2018-05-21] MEDS: LevETIRAcetam 500 MG TABLET PO SCH ×2 (08:14→16:02)
[2018-05-21] MEDS: ASPIRIN 81 MG CHEWABLE TABLET PO SCH (08:14)
[2018-05-21 08:22] LABS: HEMOGLOBIN A1C 5.4 % (4.5-6.2)
[2018-05-21 08:24] LABS: ALANINE AMINOTRANSFERASE 30 U/L (12-78); ALBUMIN 3.6 g/dL (3.4-5.0); ALKALINE PHOSPHATASE 73 U/L (46-116); ANION GAP 8 mmol/L (8-16); ASPARTATE AMINOTRANSFERASE 33 U/L (15-37); BILIRUBIN,TOTAL 0.3 mg/dL (0.1-1.0); CALCIUM, TOTAL 8.4 mg/dL (8.8-10.5); CARBAMAZEPINE (TEGRETOL) 4.6 mcg/mL (4.0-12.0); CARBON DIOXIDE 27 mmol/L (22-29); CHLORIDE 105 mmol/L (98-107); CHOLESTEROL 235 mg/dL (131-200); CREATININE 0.95 mg/dL (0.60-1.30); FREE T4 (FREE THYROXINE) 0.65 ng/dL (0.76-1.46); GLOMERULAR FILTR. RATE CALC > 60 mL/min (>60); GLUCOSE,RANDOM 106 mg/dL (70-110); HDL CHOLESTEROL 59 mg/dL (40-60); LDL CHOL (CALC.) 162 mg/dL (0-130); POTASSIUM 3.8 mmol/L (3.5-5.1); SODIUM SERUM 140 mmol/L (136-145); THYROID STIMULATING HORMONE 1.14 uIU/mL (0.36-3.74); TOTAL PROTEIN, SERUM 6.8 g/dL (6.4-8.2); TRIGLYCERIDES 72 mg/dL (15-150); UREA NITROGEN, BLOOD 17 mg/dL (7-18)
[2018-05-21 08:36] LABS: AMPHET/METH SCREEN,URINE NEGATIVE (NEGATIVE); BARBITURATE SCREEN, URINE NEGATIVE (NEGATIVE); BENZODIAZEPINES SCREEN,URINE NEGATIVE (NEGATIVE); CANNABINOID SCREEN,URINE NEGATIVE (NEGATIVE); COCAINE SCREEN,URINE NEGATIVE (NEGATIVE); METHADONE SCREEN, URINE NEGATIVE (NEGATIVE); OPIATE SCREEN,URINE NEGATIVE (NEGATIVE); PHENCYCLIDINE SCREEN,URINE NEGATIVE (NEGATIVE)
[2018-05-21 09:04] LABS: APPEARANCE,URINE CLEAR (CLEAR); BILIRUBIN,URINE NEGATIVE (NEGATIVE); GLUCOSE, URINE (UA) 250 mg/dL (NEGATIVE); KETONES,URINE TRACE mg/dL (NEGATIVE); LEUKOCYTE ESTERASE ,URINE NEGATIVE (NEGATIVE); NITRATE,URINE NEGATIVE (NEGATIVE); OCCULT BLOOD,URINE NEGATIVE (NEGATIVE); PH,URINE 6.5 (5.0-8.0); PROTEIN,URINE NEGATIVE (NEGATIVE); UROBILINOGEN,URINE 0.2 mg/dL (<=1.0)
[2018-05-21 09:52] LABS: BACTERIA,URINE None Seen /HPF (None Seen); RBC,URINE 0-2 /HPF (0-2); WBC,URINE 0-2 /HPF (0-5)
[2018-05-21 09:53] LABS: SQUAMOUS EPITHELIAL CELL,UR Few /LPF (None Seen)
[2018-05-21] MEDS: ClonazePAM 1 MG TABLET PO SCH ×2 (11:38→20:15)
[2018-05-21 16:30] VITALS: BP 143/67
[2018-05-21] MEDS: QUEtiapine FUMARATE 200 MG TABLET PO SCH (20:14)
[2018-05-21] MEDS: ZOLPIDEM TARTRATE 10 MG TABLET PO PRN (20:57)
[2018-05-22 04:31] VITALS: BP 131/78
[2018-05-22 08:08] VITALS: BP 138/76
[2018-05-22] MEDS: ASPIRIN 81 MG CHEWABLE TABLET PO SCH (08:16)
[2018-05-22] MEDS: AmLODIPine BESYLATE 2.5 MG TABLET PO SCH (08:16)
[2018-05-22] MEDS: ClonazePAM 1 MG TABLET PO SCH ×2 (08:16→20:29)
[2018-05-22] MEDS: LevETIRAcetam 500 MG TABLET PO SCH ×2 (08:16→16:39)
[2018-05-22] MEDS: CarBAMazepine 200 MG TABLET PO SCH ×2 (08:24→16:39)
[2018-05-22] MEDS: LORazepam 2 MG TABLET PO PRN ×2 (11:16→16:39)
[2018-05-22 16:05] VITALS: BP 140/89
[2018-05-22] MEDS: ZOLPIDEM TARTRATE 10 MG TABLET PO PRN (20:28)
[2018-05-22] MEDS: QUEtiapine FUMARATE 200 MG TABLET PO SCH (20:29)
[2018-05-23 00:58] VITALS: BP 135/89
[2018-05-23] MEDS: IBUPROFEN 400 MG TABLET PO PRN (01:08)
[2018-05-23] MEDS: LORazepam 2 MG TABLET PO PRN ×3 (01:09→13:39)
[2018-05-23] MEDS: CarBAMazepine 200 MG TABLET PO SCH ×2 (08:10→17:07)
[2018-05-23] MEDS: LevETIRAcetam 500 MG TABLET PO SCH ×2 (08:10→17:07)
[2018-05-23] MEDS: ASPIRIN 81 MG CHEWABLE TABLET PO SCH (08:10)
[2018-05-23] MEDS: ClonazePAM 1 MG TABLET PO SCH ×2 (08:10→20:21)
[2018-05-23] MEDS: AmLODIPine BESYLATE 2.5 MG TABLET PO SCH (08:11)
[2018-05-23 10:00] VITALS: BP 162/79
[2018-05-23 16:00] VITALS: BP 123/86
[2018-05-23] MEDS ORDERED: QUEtiapine FUMARATE 200 MG TABLET PO SCH (21:00)
[2018-05-24 03:09] VITALS: BP 139/83
[2018-05-24] MEDS: LORazepam 2 MG TABLET PO PRN ×2 (03:11→08:56)
[2018-05-24 05:25] VITALS: BP 176/100
[2018-05-24 06:25] VITALS: BP 167/97
[2018-05-24 08:20] VITALS: BP 162/88
[2018-05-24] MEDS: CarBAMazepine 200 MG TABLET PO SCH (08:55)
[2018-05-24] MEDS: AmLODIPine BESYLATE 2.5 MG TABLET PO SCH (08:55)
[2018-05-24] MEDS: ClonazePAM 1 MG TABLET PO SCH (08:56)
[2018-05-24] MEDS: IBUPROFEN 400 MG TABLET PO PRN (08:57)
[2018-05-24] MEDS: LevETIRAcetam 500 MG TABLET PO SCH (08:57)
[2018-05-24] MEDS: ASPIRIN 81 MG CHEWABLE TABLET PO SCH (08:57)
[2018-05-24] MEDS ORDERED: HYDROCHLOROTHIAZIDE 25 MG TABLET PO SCH (09:00)
[2018-05-24] MEDS ORDERED: QUET200T29 PO (11:01)
[2018-05-24] MEDS ORDERED: CLON1 PO (11:01)
[2018-05-24] MEDS ORDERED: AMLO2.5T3 PO (11:28)
[2018-05-24] MEDS ORDERED: HYDR25TA PO (11:33)
== END 2018-05-24 13:30 | disposition home or self-care (01) | DRG 885 ==
LOC: B2S 14:30
PROVIDERS: ADMIT Psychiatry & Neurology Child & Adolescent Psychiatry
DX: F25.1 Schizoaffective disorder, depressive type (principal); R45.851 Suicidal ideations; G40.909 Epilepsy, unspecified, not intractable, without status epilepticus; M19.90 Unspecified osteoarthritis, unspecified site; E78.5 Hyperlipidemia, unspecified; F43.12 Post-traumatic stress disorder, chronic; I10 Essential (primary) hypertension; N28.9 Disorder of kidney and ureter, unspecified; Z91.128 Patient's intentional underdosing of medication regimen for other reason; Z96.651 Presence of right artificial knee joint
CPT/HCPCS: 80307; 83036; 84439; 84443; G0482

== ENCOUNTER 2018-06-09 13:06 | Emergency (ER) | payer MEDICARE ==
[~2018-06-09] VITALS: Ht 172.7 cm; Wt 79.5 kg
[~2018-06-09 13:06] MED LIST changes: +AMLO2.5T4 PO; +CLON1 PO; +HYDR25TA PO; +QUET200T29 PO
[2018-06-09 13:15] VITALS: BP 189/96
== END 2018-06-09 18:05 | disposition left against medical advice (07) ==
LOC: EMS 13:07
DX: I10 Essential (primary) hypertension (principal); F41.9 Anxiety disorder, unspecified; Z53.21 Procedure and treatment not carried out due to patient leaving prior to being seen by health care provider
CPT/HCPCS: 93005

== ENCOUNTER 2018-06-15 12:23 | Inpatient (IN) | payer MEDICARE ==
[~2018-06-15] VITALS: Ht 172.7 cm; Wt 79.4 kg
[2018-06-15 13:10] VITALS: BP 147/77
[2018-06-15] MEDS ORDERED: LORazepam 2 MG TABLET PO PRN (13:15)
[2018-06-15] MEDS ORDERED: ZOLPIDEM TARTRATE 10 MG TABLET PO PRN (13:15)
[2018-06-15] MEDS ORDERED: MAG HYDROX/AL HYDROX/SIMETH ES 30 ML SUSPENSION UDCUP PO PRN (14:00)
[2018-06-15] MEDS ORDERED: NICOTINE 14 MG/24 HOUR PATCH TD PRN (14:00)
[2018-06-15] MEDS ORDERED: LOPERAMIDE HCL 2 MG CAPSULE PO PRN (14:00)
[2018-06-15] MEDS ORDERED: ACETAMINOPHEN 325 MG TABLET PO PRN (14:00)
[2018-06-15] MEDS ORDERED: CloNIDine HCL 0.1 MG TABLET PO PRN (14:00)
[2018-06-15] MEDS ORDERED: PETROLATUM,WHITE 71 GM JELLY TP PRN (14:00)
[2018-06-15] MEDS ORDERED: MAGNESIUM HYDROXIDE SUSPENSION 30 ML UDCUP PO PRN (14:00)
[2018-06-15] MEDS ORDERED: ALBUTEROL SULFATE HFA 90 MCG/PUFF 8 GM INHALER IH PRN (14:00)
[2018-06-15] MEDS ORDERED: DOCUSATE SODIUM 100 MG CAPSULE PO PRN (14:00)
[2018-06-15] MEDS ORDERED: GuaiFENesin/D-METHORPHAN [SUGAR-FREE] 200-20MG/10 ML SYRUP UDCUP PO PRN (14:00)
[2018-06-15 14:17] VITALS: BP 140/90
[2018-06-15 16:09] VITALS: BP 125/65
[2018-06-15] MEDS: CarBAMazepine 200 MG TABLET PO SCH (16:31)
[2018-06-15] MEDS: LevETIRAcetam 500 MG TABLET PO SCH (16:31)
[2018-06-15] MEDS: QUEtiapine FUMARATE 200 MG TABLET PO SCH (20:53)
[2018-06-15] MEDS: ClonazePAM 1 MG TABLET PO SCH (21:21)
[2018-06-16 08:15] VITALS: BP 127/94
[2018-06-16] MEDS: ClonazePAM 1 MG TABLET PO SCH ×2 (08:17→20:26)
[2018-06-16] MEDS: LevETIRAcetam 500 MG TABLET PO SCH ×2 (08:17→16:08)
[2018-06-16] MEDS: CarBAMazepine 200 MG TABLET PO SCH ×2 (08:17→16:08)
[2018-06-16] MEDS: IBUPROFEN 400 MG TABLET PO PRN (08:19)
[2018-06-16 08:21] VITALS: BP 130/61
[2018-06-16 08:21] LABS: BASOPHILS % (AUTO) 0.4 % (0.0-2.0); EOSINOPHILS % (AUTO) 2.9 % (1.0-6.0); HEMATOCRIT 46.4 % (41-53); HEMOGLOBIN 15.8 g/dL (13.5-17.5); LYMPHOCYTES # (AUTO) 1.1 K/uL (1.0-4.8); LYMPHOCYTES % (AUTO) 21.7 % (22.0-44.0); MEAN CORPUSCULAR HEMOGLOBIN 33.4 pg (26.0-34.0); MEAN CORPUSCULAR VOLUME 98 fL (80-100); MONOCYTES # (AUTO) 0.4 K/uL (0.1-1.0); MONOCYTES % (AUTO) 7.3 % (2.0-9.0); NEUTROPHILS # (AUTO) 3.5 K/uL (1.8-7.7); NEUTROPHILS % (AUTO) 67.7 % (40.0-70.0); PLATELET COUNT (AUTO) 414 K/uL (150-450); RED BLOOD CELL COUNT(AUTO) 4.71 MIL/uL (4.50-5.90); RED CELL DISTRIBUTION WIDTH 13.1 % (11.5-14.5)
[2018-06-16] MEDS ORDERED: AmLODIPine BESYLATE 2.5 MG TABLET PO SCH (09:00)
[2018-06-16] MEDS ORDERED: HYDROCHLOROTHIAZIDE 25 MG TABLET PO SCH (09:00)
[2018-06-16 09:06] LABS: AMPHET/METH SCREEN,URINE NEGATIVE (NEGATIVE); BARBITURATE SCREEN, URINE NEGATIVE (NEGATIVE); BENZODIAZEPINES SCREEN,URINE NEGATIVE (NEGATIVE); CANNABINOID SCREEN,URINE NEGATIVE (NEGATIVE); COCAINE SCREEN,URINE NEGATIVE (NEGATIVE); METHADONE SCREEN, URINE NEGATIVE (NEGATIVE); OPIATE SCREEN,URINE NEGATIVE (NEGATIVE)
[2018-06-16 09:07] LABS: PHENCYCLIDINE SCREEN,URINE NEGATIVE (NEGATIVE)
[2018-06-16 09:15] LABS: ALANINE AMINOTRANSFERASE 21 U/L (12-78); ALBUMIN 3.6 g/dL (3.4-5.0); ALKALINE PHOSPHATASE 79 U/L (46-116); ANION GAP 8 mmol/L (8-16); ASPARTATE AMINOTRANSFERASE 25 U/L (15-37); BILIRUBIN,TOTAL 0.3 mg/dL (0.1-1.0); CALCIUM, TOTAL 8.9 mg/dL (8.8-10.5); CARBON DIOXIDE 32 mmol/L (22-29); CHLORIDE 103 mmol/L (98-107); CHOL/HDL RATIO 5.5 (4.2-7.3); CHOLESTEROL 280 mg/dL (131-200); CREATININE 1.03 mg/dL (0.60-1.30); FREE T4 (FREE THYROXINE) 0.68 ng/dL (0.76-1.46); GLOMERULAR FILTR. RATE CALC > 60 mL/min (>60); GLUCOSE,RANDOM 80 mg/dL (70-110); HDL CHOLESTEROL 51 mg/dL (40-60); HEMOGLOBIN A1C 5.6 % (4.5-6.2); LDL CHOL (CALC.) 203 mg/dL (0-130); POTASSIUM 3.6 mmol/L (3.5-5.1); SODIUM SERUM 143 mmol/L (136-145); THYROID STIMULATING HORMONE 1.47 uIU/mL (0.36-3.74); TOTAL PROTEIN, SERUM 7.4 g/dL (6.4-8.2); TRIGLYCERIDES 131 mg/dL (15-150); UREA NITROGEN, BLOOD 28 mg/dL (7-18)
[2018-06-16 09:19] VITALS: BP 127/93
[2018-06-16 09:42] LABS: APPEARANCE,URINE CLEAR (CLEAR); BILIRUBIN,URINE NEGATIVE (NEGATIVE); GLUCOSE, URINE (UA) NEGATIVE (NEGATIVE); KETONES,URINE NEGATIVE (NEGATIVE); LEUKOCYTE ESTERASE ,URINE NEGATIVE (NEGATIVE); NITRATE,URINE NEGATIVE (NEGATIVE); OCCULT BLOOD,URINE NEGATIVE (NEGATIVE); PH,URINE 6.5 (5.0-8.0); PROTEIN,URINE NEGATIVE (NEGATIVE); UROBILINOGEN,URINE 0.2 mg/dL (<=1.0)
[2018-06-16] MEDS ORDERED: QUET300T2 PO (10:59)
[2018-06-16] MEDS: HALOPERIDOL 5 MG TABLET PO PRN ×2 (15:41→20:27)
[2018-06-16 16:03] VITALS: BP 139/89
[2018-06-16] MEDS: QUEtiapine FUMARATE 200 MG TABLET PO SCH (20:26)
[2018-06-17 01:02] VITALS: BP 103/64
[2018-06-17 07:37] VITALS: BP 143/90
[2018-06-17] MEDS: LevETIRAcetam 500 MG TABLET PO SCH ×2 (08:02→16:30)
[2018-06-17] MEDS: ClonazePAM 1 MG TABLET PO SCH ×2 (08:02→20:38)
[2018-06-17] MEDS: HYDROCHLOROTHIAZIDE 25 MG TABLET PO SCH (08:02)
[2018-06-17] MEDS: CarBAMazepine 200 MG TABLET PO SCH ×2 (08:03→16:30)
[2018-06-17] MEDS: ASPIRIN 81 MG CHEWABLE TABLET PO SCH (08:03)
[2018-06-17] MEDS ORDERED: AmLODIPine BESYLATE 2.5 MG TABLET PO SCH (09:00)
[2018-06-17 09:08] VITALS: BP 124/73
[2018-06-17 16:03] VITALS: BP 160/78
[2018-06-17] MEDS ORDERED: AmLODIPine BESYLATE 5 MG TABLET PO ONE (17:00)
[2018-06-17 17:14] VITALS: BP 157/80
[2018-06-17 18:25] VITALS: BP 143/81
[2018-06-17] MEDS: QUEtiapine FUMARATE 200 MG TABLET PO SCH (20:38)
[2018-06-18] VITALS (7 sets, daily range): BP systolic 117–176; BP diastolic 73–96
[2018-06-18] MEDS: ASPIRIN 81 MG CHEWABLE TABLET PO SCH (08:08)
[2018-06-18] MEDS: LevETIRAcetam 500 MG TABLET PO SCH ×2 (08:08→16:48)
[2018-06-18] MEDS: AmLODIPine BESYLATE 5 MG TABLET PO SCH (08:08)
[2018-06-18] MEDS: HYDROCHLOROTHIAZIDE 25 MG TABLET PO SCH (08:08)
[2018-06-18] MEDS: CarBAMazepine 200 MG TABLET PO SCH ×2 (08:08→16:48)
[2018-06-18] MEDS: ClonazePAM 1 MG TABLET PO SCH ×2 (08:08→21:07)
[2018-06-18] MEDS: IBUPROFEN 400 MG TABLET PO PRN (08:59)
[2018-06-18] MEDS: HALOPERIDOL 5 MG TABLET PO PRN (12:03)
[2018-06-18] MEDS: TraMADol HCL 50 MG TABLET PO PRN (14:26)
[2018-06-18] MEDS: QUEtiapine FUMARATE 200 MG TABLET PO SCH (21:06)
[2018-06-19 03:00] VITALS: BP 149/83
[2018-06-19] MEDS: TraMADol HCL 50 MG TABLET PO PRN (03:03)
[2018-06-19] MEDS: LevETIRAcetam 500 MG TABLET PO SCH (08:08)
[2018-06-19] MEDS: AmLODIPine BESYLATE 5 MG TABLET PO SCH (08:08)
[2018-06-19] MEDS: CarBAMazepine 200 MG TABLET PO SCH (08:08)
[2018-06-19] MEDS: HYDROCHLOROTHIAZIDE 25 MG TABLET PO SCH (08:08)
[2018-06-19] MEDS: ClonazePAM 1 MG TABLET PO SCH (08:08)
[2018-06-19] MEDS: ASPIRIN 81 MG CHEWABLE TABLET PO SCH (08:08)
[2018-06-19 09:37] VITALS: BP 140/90
== END 2018-06-19 09:35 | disposition home or self-care (01) | DRG 885 ==
LOC: B2X 13:08
PROVIDERS: ADMIT Psychiatry & Neurology Psychiatry
DX: F25.1 Schizoaffective disorder, depressive type (principal); E78.5 Hyperlipidemia, unspecified; F43.10 Post-traumatic stress disorder, unspecified; G40.909 Epilepsy, unspecified, not intractable, without status epilepticus; G89.29 Other chronic pain; I10 Essential (primary) hypertension; M19.90 Unspecified osteoarthritis, unspecified site; Z96.651 Presence of right artificial knee joint; F99 Mental disorder, not otherwise specified
CPT/HCPCS: 80307; 83036; 84439; 84443

== ENCOUNTER 2018-07-02 09:47 | Inpatient (IN) | payer MEDICARE ==
[~2018-07-02] VITALS: Ht 172.7 cm; Wt 79.6 kg
[~2018-07-02 09:47] MED LIST changes: -QUET200T29 PO; +QUET300T2 PO
[2018-07-02 10:14] LABS: BASOPHILS % (AUTO) 0.6 % (0.0-2.0); EOSINOPHILS % (AUTO) 0.9 % (1.0-6.0); HEMATOCRIT 43.2 % (41-53); HEMOGLOBIN 14.8 g/dL (13.5-17.5); LYMPHOCYTES # (AUTO) 1.1 K/uL (1.0-4.8); LYMPHOCYTES % (AUTO) 19.3 % (22.0-44.0); MEAN CORPUSCULAR HEMOGLOBIN 33.1 pg (26.0-34.0); MEAN CORPUSCULAR HGB CONC 34.3 G/dL (31.0-37.0); MEAN CORPUSCULAR VOLUME 97 fL (80-100); MONOCYTES # (AUTO) 0.6 K/uL (0.1-1.0); MONOCYTES % (AUTO) 10.6 % (2.0-9.0); NEUTROPHILS # (AUTO) 3.9 K/uL (1.8-7.7); NEUTROPHILS % (AUTO) 68.6 % (40.0-70.0); PLATELET COUNT (AUTO) 431 K/uL (150-450); RED BLOOD CELL COUNT(AUTO) 4.47 MIL/uL (4.50-5.90); RED CELL DISTRIBUTION WIDTH 12.8 % (11.5-14.5)
[2018-07-02 10:23] LABS: ANION GAP 10 mmol/L (8-16); CALCIUM, TOTAL 8.3 mg/dL (8.8-10.5); CARBON DIOXIDE 28 mmol/L (22-29); CHLORIDE 100 mmol/L (98-107); GLOMERULAR FILTR. RATE CALC > 60 mL/min (>60); GLUCOSE,RANDOM 76 mg/dL (70-110); POTASSIUM 3.3 mmol/L (3.5-5.1); SODIUM SERUM 138 mmol/L (136-145); UREA NITROGEN, BLOOD 21 mg/dL (7-18)
[2018-07-02 10:37] LABS: ALANINE AMINOTRANSFERASE 32 U/L (12-78); ALBUMIN 3.8 g/dL (3.4-5.0); ALKALINE PHOSPHATASE 87 U/L (46-116); ASPARTATE AMINOTRANSFERASE 27 U/L (15-37); BILIRUBIN,TOTAL 0.2 mg/dL (0.1-1.0); CARBAMAZEPINE (TEGRETOL) 7.7 mcg/mL (4.0-12.0); THYROID STIMULATING HORMONE 2.16 uIU/mL (0.36-3.74); TOTAL PROTEIN, SERUM 7.5 g/dL (6.4-8.2)
[2018-07-02] MEDS ORDERED: LORazepam 2 MG TABLET PO ONE (10:45)
[2018-07-02] MEDS ORDERED: QUEtiapine FUMARATE 100 MG TABLET PO ONE (10:45)
[2018-07-02] MEDS ORDERED: ZOLPIDEM TARTRATE 10 MG TABLET PO PRN (11:00)
[2018-07-02] MEDS ORDERED: QUEtiapine FUMARATE 100 MG TABLET PO PRN (11:00)
[2018-07-02] MEDS ORDERED: POTASSIUM CHLORIDE 20 MEQ ER TABLET PO ONE (11:15)
[2018-07-02 11:45] LABS: APPEARANCE,URINE CLEAR (CLEAR); BILIRUBIN,URINE NEGATIVE (NEGATIVE); GLUCOSE, URINE (UA) 250 mg/dL (NEGATIVE); KETONES,URINE NEGATIVE (NEGATIVE); LEUKOCYTE ESTERASE ,URINE NEGATIVE (NEGATIVE); NITRATE,URINE NEGATIVE (NEGATIVE); OCCULT BLOOD,URINE NEGATIVE (NEGATIVE); PH,URINE 5.5 (5.0-8.0); PROTEIN,URINE TRACE (NEGATIVE); UROBILINOGEN,URINE 0.2 mg/dL (<=1.0)
[2018-07-02 11:47] LABS: AMPHET/METH SCREEN,URINE NEGATIVE (NEGATIVE); BARBITURATE SCREEN, URINE NEGATIVE (NEGATIVE); BENZODIAZEPINES SCREEN,URINE NEGATIVE (NEGATIVE); CANNABINOID SCREEN,URINE NEGATIVE (NEGATIVE); COCAINE SCREEN,URINE NEGATIVE (NEGATIVE); METHADONE SCREEN, URINE NEGATIVE (NEGATIVE); OPIATE SCREEN,URINE NEGATIVE (NEGATIVE); PHENCYCLIDINE SCREEN,URINE NEGATIVE (NEGATIVE)
[2018-07-02 12:13] LABS: BACTERIA,URINE Rare /HPF (None Seen); RBC,URINE 0-2 /HPF (0-2); SQUAMOUS EPITHELIAL CELL,UR Rare /LPF (None Seen); WBC,URINE 0-2 /HPF (0-5)
[2018-07-02 12:55] VITALS: BP 142/73
[2018-07-02] MEDS ORDERED: GuaiFENesin/D-METHORPHAN [SUGAR-FREE] 200-20MG/10 ML SYRUP UDCUP PO PRN (14:45)
[2018-07-02] MEDS ORDERED: ACETAMINOPHEN 325 MG TABLET PO PRN (14:45)
[2018-07-02] MEDS ORDERED: CloNIDine HCL 0.1 MG TABLET PO PRN (14:45)
[2018-07-02] MEDS ORDERED: NICOTINE 14 MG/24 HOUR PATCH TD PRN (14:45)
[2018-07-02] MEDS ORDERED: LOPERAMIDE HCL 2 MG CAPSULE PO PRN (14:45)
[2018-07-02] MEDS ORDERED: PETROLATUM,WHITE 71 GM JELLY TP PRN (14:45)
[2018-07-02] MEDS ORDERED: ONDANSETRON HCL 4 MG TABLET PO PRN (14:45)
[2018-07-02] MEDS ORDERED: ALBUTEROL SULFATE HFA 90 MCG/PUFF 8 GM INHALER IH PRN (14:45)
[2018-07-02] MEDS ORDERED: MAG HYDROX/AL HYDROX/SIMETH ES 30 ML SUSPENSION UDCUP PO PRN (14:45)
[2018-07-02] MEDS ORDERED: DOCUSATE SODIUM 100 MG CAPSULE PO PRN (14:45)
[2018-07-02] MEDS ORDERED: MAGNESIUM HYDROXIDE SUSPENSION 30 ML UDCUP PO PRN (14:45)
[2018-07-02] MEDS: LORazepam 2 MG TABLET PO PRN ×2 (15:00→19:57)
[2018-07-02 16:40] VITALS: BP 145/90
[2018-07-02] MEDS: CarBAMazepine 200 MG TABLET PO SCH (16:48)
[2018-07-02] MEDS: LevETIRAcetam 500 MG TABLET PO SCH (16:48)
[2018-07-02] MEDS: AmLODIPine BESYLATE 5 MG TABLET PO SCH (16:48)
[2018-07-02] MEDS: HYDROCHLOROTHIAZIDE 25 MG TABLET PO SCH (16:49)
[2018-07-02] MEDS: QUEtiapine FUMARATE 200 MG TABLET PO SCH (20:33)
[2018-07-03] MEDS: IBUPROFEN 400 MG TABLET PO PRN (04:29)
[2018-07-03 04:55] VITALS: BP 143/90
[2018-07-03] MEDS: LevETIRAcetam 500 MG TABLET PO SCH ×2 (08:51→16:25)
[2018-07-03] MEDS: HYDROCHLOROTHIAZIDE 25 MG TABLET PO SCH (08:51)
[2018-07-03] MEDS: AmLODIPine BESYLATE 5 MG TABLET PO SCH (08:51)
[2018-07-03] MEDS: CarBAMazepine 200 MG TABLET PO SCH ×2 (08:51→16:25)
[2018-07-03] MEDS: LORazepam 2 MG TABLET PO PRN ×3 (09:30→20:35)
[2018-07-03 09:45] VITALS: BP 140/85
[2018-07-03 16:26] VITALS: BP 170/100
[2018-07-03] MEDS: QUEtiapine FUMARATE 200 MG TABLET PO SCH (20:35)
[2018-07-04 02:40] VITALS: BP 138/80
[2018-07-04] MEDS: LORazepam 2 MG TABLET PO PRN ×2 (06:51→20:05)
[2018-07-04 07:55] VITALS: BP 155/75
[2018-07-04 08:07] LABS: BASOPHILS % (AUTO) 0.7 % (0.0-2.0); HEMATOCRIT 42.7 % (41-53); HEMOGLOBIN 14.8 g/dL (13.5-17.5); LYMPHOCYTES # (AUTO) 1.2 K/uL (1.0-4.8); LYMPHOCYTES % (AUTO) 24.3 % (22.0-44.0); MEAN CORPUSCULAR HEMOGLOBIN 33.7 pg (26.0-34.0); MEAN CORPUSCULAR HGB CONC 34.7 G/dL (31.0-37.0); MEAN CORPUSCULAR VOLUME 97 fL (80-100); MONOCYTES # (AUTO) 0.4 K/uL (0.1-1.0); MONOCYTES % (AUTO) 7.4 % (2.0-9.0); NEUTROPHILS % (AUTO) 60.6 % (40.0-70.0); PLATELET COUNT (AUTO) 414 K/uL (150-450); RED CELL DISTRIBUTION WIDTH 12.8 % (11.5-14.5)
[2018-07-04 08:21] LABS: ALANINE AMINOTRANSFERASE 32 U/L (12-78); ALBUMIN 3.5 g/dL (3.4-5.0); ALKALINE PHOSPHATASE 78 U/L (46-116); ANION GAP 5 mmol/L (8-16); ASPARTATE AMINOTRANSFERASE 27 U/L (15-37); BILIRUBIN,TOTAL 0.4 mg/dL (0.1-1.0); CALCIUM, TOTAL 8.7 mg/dL (8.8-10.5); CARBON DIOXIDE 32 mmol/L (22-29); CHLORIDE 100 mmol/L (98-107); CHOL/HDL RATIO 4.7 (4.2-7.3); CHOLESTEROL 269 mg/dL (131-200); CREATININE 1.13 mg/dL (0.60-1.30); GLOMERULAR FILTR. RATE CALC > 60 mL/min (>60); GLUCOSE,RANDOM 100 mg/dL (70-110); HDL CHOLESTEROL 57 mg/dL (40-60); LDL CHOL (CALC.) 180 mg/dL (0-130); POTASSIUM 3.7 mmol/L (3.5-5.1); SODIUM SERUM 137 mmol/L (136-145); THYROID STIMULATING HORMONE 1.78 uIU/mL (0.36-3.74); TOTAL PROTEIN, SERUM 7.1 g/dL (6.4-8.2); TRIGLYCERIDES 158 mg/dL (15-150); UREA NITROGEN, BLOOD 23 mg/dL (7-18)
[2018-07-04 08:23] LABS: HEMOGLOBIN A1C 5.7 % (4.5-6.2)
[2018-07-04 08:27] VITALS: BP 124/69
[2018-07-04] MEDS: CarBAMazepine 200 MG TABLET PO SCH ×2 (09:00→16:32)
[2018-07-04] MEDS: AmLODIPine BESYLATE 5 MG TABLET PO SCH (09:00)
[2018-07-04] MEDS: LevETIRAcetam 500 MG TABLET PO SCH ×2 (09:00→16:32)
[2018-07-04] MEDS: HYDROCHLOROTHIAZIDE 25 MG TABLET PO SCH (09:00)
[2018-07-04] MEDS: TraMADol HCL 50 MG TABLET PO PRN ×2 (10:40→17:08)
[2018-07-04] MEDS: IBUPROFEN 400 MG TABLET PO PRN ×2 (10:43→21:38)
[2018-07-04 17:08] VITALS: BP 139/75
[2018-07-04 17:12] VITALS: BP 139/75
[2018-07-04] MEDS: QUEtiapine FUMARATE 200 MG TABLET PO SCH (20:05)
[2018-07-04 21:38] VITALS: BP 126/72
[2018-07-05 03:12] VITALS: BP 124/68
[2018-07-05 08:34] VITALS: BP 154/73
[2018-07-05] MEDS: HYDROCHLOROTHIAZIDE 25 MG TABLET PO SCH (09:01)
[2018-07-05] MEDS: LevETIRAcetam 500 MG TABLET PO SCH (09:01)
[2018-07-05] MEDS: CarBAMazepine 200 MG TABLET PO SCH (09:01)
[2018-07-05] MEDS: AmLODIPine BESYLATE 5 MG TABLET PO SCH (09:01)
[2018-07-05] MEDS: TraMADol HCL 50 MG TABLET PO PRN (10:07)
[2018-07-05] MEDS ORDERED: QUET200T29 PO (10:23)
[2018-07-05] MEDS ORDERED: TRAM50TA4 PO (12:11)
== END 2018-07-05 13:30 | disposition home or self-care (01) | DRG 885 ==
LOC: EMS 09:49 → B2S 11:46
DX: F25.1 Schizoaffective disorder, depressive type (principal); R45.851 Suicidal ideations; G40.909 Epilepsy, unspecified, not intractable, without status epilepticus; I10 Essential (primary) hypertension; M19.90 Unspecified osteoarthritis, unspecified site; E78.5 Hyperlipidemia, unspecified; N28.9 Disorder of kidney and ureter, unspecified; F43.12 Post-traumatic stress disorder, chronic; E87.6 Hypokalemia; G89.29 Other chronic pain; R74.0 Nonspecific elevation of levels of transaminase and lactic acid dehydrogenase [LDH]; K40.90 Unilateral inguinal hernia, without obstruction or gangrene, not specified as recurrent; M54.9 Dorsalgia, unspecified; S20.212A Contusion of left front wall of thorax, initial encounter; X58.XXXA Exposure to other specified factors, initial encounter; Y93.89 Activity, other specified; Y99.8 Other external cause status; Z79.899 Other long term (current) drug therapy; Y92.89 Other specified places as the place of occurrence of the external cause
CPT/HCPCS: 83036; 84443; 87081; G0480

== ENCOUNTER 2018-12-13 13:13 | Inpatient (IN) | payer MEDICARE ==
[~2018-12-13] VITALS: Ht 172.7 cm; Wt 78.9 kg
[~2018-12-13 13:13] MED LIST changes: -ASPI81 PO; -CLON1 PO; +QUET200T29 PO; -QUET300T2 PO; +TRAM50TA4 PO
[2018-12-13 13:39] VITALS: BP 163/67
[2018-12-13] MEDS ORDERED: ZOLPIDEM TARTRATE 10 MG TABLET PO PRN (14:00)
[2018-12-13] MEDS ORDERED: AMLO5TAB9 PO (15:43)
[2018-12-13] MEDS ORDERED: LOPERAMIDE HCL 2 MG CAPSULE PO PRN (15:45)
[2018-12-13] MEDS ORDERED: IBUPROFEN 400 MG TABLET PO PRN (15:45)
[2018-12-13] MEDS ORDERED: DOCUSATE SODIUM 100 MG CAPSULE PO PRN (15:45)
[2018-12-13] MEDS ORDERED: MAGNESIUM HYDROXIDE SUSPENSION 30 ML UDCUP PO PRN (15:45)
[2018-12-13] MEDS ORDERED: NICOTINE 14 MG/24 HOUR PATCH TD PRN (15:45)
[2018-12-13] MEDS ORDERED: MAG HYDROX/AL HYDROX/SIMETH ES 30 ML SUSPENSION UDCUP PO PRN (15:45)
[2018-12-13] MEDS ORDERED: ONDANSETRON HCL 4 MG TABLET PO PRN (15:45)
[2018-12-13] MEDS ORDERED: CloNIDine HCL 0.1 MG TABLET PO PRN (15:45)
[2018-12-13] MEDS ORDERED: ALBUTEROL SULFATE HFA 90 MCG/PUFF 8 GM INHALER IH PRN (15:45)
[2018-12-13] MEDS ORDERED: GuaiFENesin/D-METHORPHAN [SUGAR-FREE] 200-20MG/10 ML SYRUP UDCUP PO PRN (15:45)
[2018-12-13] MEDS ORDERED: PETROLATUM,WHITE 28 GM JELLY TP PRN (15:45)
[2018-12-13 16:00] VITALS: BP 139/85
[2018-12-13] MEDS: LORazepam 2 MG TABLET PO PRN (16:11)
[2018-12-13] MEDS ORDERED: LevETIRAcetam 500 MG TABLET PO SCH (17:00)
[2018-12-13] MEDS ORDERED: CarBAMazepine 200 MG TABLET PO SCH (17:00)
[2018-12-13] MEDS: QUEtiapine FUMARATE 200 MG ER TABLET PO SCH (20:36)
[2018-12-13] MEDS: CarBAMazepine 200 MG TABLET PO SCH (20:37)
[2018-12-13] MEDS: LevETIRAcetam 250 MG TABLET PO SCH (20:37)
[2018-12-13] MEDS ORDERED: LevETIRAcetam 250 MG TABLET PO SCH (21:00)
[2018-12-14 05:55] VITALS: BP 130/81
[2018-12-14 07:54] LABS: AMPHET/METH SCREEN,URINE POSITIVE (NEGATIVE); BARBITURATE SCREEN, URINE NEGATIVE (NEGATIVE); BENZODIAZEPINES SCREEN,URINE NEGATIVE (NEGATIVE); CANNABINOID SCREEN,URINE NEGATIVE (NEGATIVE); COCAINE SCREEN,URINE NEGATIVE (NEGATIVE); METHADONE SCREEN, URINE NEGATIVE (NEGATIVE); OPIATE SCREEN,URINE NEGATIVE (NEGATIVE)
[2018-12-14 07:55] LABS: PHENCYCLIDINE SCREEN,URINE NEGATIVE (NEGATIVE)
[2018-12-14 08:12] VITALS: BP 107/66
[2018-12-14 08:18] LABS: APPEARANCE,URINE CLEAR (CLEAR); GLUCOSE, URINE (UA) NEGATIVE (NEGATIVE); KETONES,URINE TRACE mg/dL (NEGATIVE); LEUKOCYTE ESTERASE ,URINE NEGATIVE (NEGATIVE); NITRATE,URINE NEGATIVE (NEGATIVE); OCCULT BLOOD,URINE NEGATIVE (NEGATIVE); PROTEIN,URINE NEGATIVE (NEGATIVE); UROBILINOGEN,URINE 0.2 mg/dL (<=1.0)
[2018-12-14 08:24] VITALS: BP 125/78
[2018-12-14] MEDS: CarBAMazepine 200 MG TABLET PO SCH ×2 (08:24→20:28)
[2018-12-14 08:25] VITALS: BP 125/78
[2018-12-14] MEDS: LORazepam 2 MG TABLET PO PRN ×3 (08:25→17:27)
[2018-12-14] MEDS: HYDROCHLOROTHIAZIDE 25 MG TABLET PO SCH (08:25)
[2018-12-14] MEDS: LevETIRAcetam 250 MG TABLET PO SCH ×2 (08:25→20:28)
[2018-12-14] MEDS: ACETAMINOPHEN 325 MG TABLET PO PRN (08:28)
[2018-12-14] MEDS: AmLODIPine BESYLATE 5 MG TABLET PO SCH (08:28)
[2018-12-14 08:36] LABS: BILIRUBIN,URINE PRELIM. POSITIVE (NEGATIVE)
[2018-12-14 16:02] VITALS: BP 116/60
[2018-12-14] MEDS: QUEtiapine FUMARATE 200 MG ER TABLET PO SCH (20:28)
[2018-12-15 06:32] VITALS: BP 120/81
[2018-12-15 08:00] VITALS: BP 124/77
[2018-12-15] MEDS: HYDROCHLOROTHIAZIDE 25 MG TABLET PO SCH (08:25)
[2018-12-15] MEDS: LevETIRAcetam 250 MG TABLET PO SCH ×2 (08:25→20:28)
[2018-12-15] MEDS: CarBAMazepine 200 MG TABLET PO SCH ×2 (08:26→20:28)
[2018-12-15] MEDS: AmLODIPine BESYLATE 5 MG TABLET PO SCH (08:26)
[2018-12-15] MEDS: LORazepam 2 MG TABLET PO PRN ×3 (08:49→17:30)
[2018-12-15 16:04] VITALS: BP 142/89
[2018-12-15 18:30] VITALS: BP 125/83
[2018-12-15] MEDS: ACETAMINOPHEN 325 MG TABLET PO PRN (19:28)
[2018-12-15] MEDS: QUEtiapine FUMARATE 200 MG ER TABLET PO SCH (20:28)
[2018-12-16 00:45] VITALS: BP 128/76
[2018-12-16 08:03] VITALS: BP 140/80
[2018-12-16] MEDS: HYDROCHLOROTHIAZIDE 25 MG TABLET PO SCH (08:12)
[2018-12-16] MEDS: AmLODIPine BESYLATE 5 MG TABLET PO SCH (08:12)
[2018-12-16] MEDS: LevETIRAcetam 250 MG TABLET PO SCH ×2 (08:13→20:33)
[2018-12-16] MEDS: CarBAMazepine 200 MG TABLET PO SCH ×2 (08:18→20:33)
[2018-12-16] MEDS: LORazepam 2 MG TABLET PO PRN ×3 (08:18→17:30)
[2018-12-16] MEDS ORDERED: QUEtiapine FUMARATE 100 MG TABLET PO PRN ×2 (14:00→20:00)
[2018-12-16 16:09] VITALS: BP 140/71
[2018-12-16] MEDS: QUEtiapine FUMARATE 200 MG ER TABLET PO SCH (20:33)
[2018-12-16] MEDS: ACETAMINOPHEN 325 MG TABLET PO PRN (22:56)
[2018-12-17 03:06] VITALS: BP 140/79
[2018-12-17 08:06] VITALS: BP 112/68
[2018-12-17 08:16] LABS: BASOPHILS % (AUTO) 0.8 % (0.0-2.0); EOSINOPHILS % (AUTO) 4.8 % (1.0-6.0); HEMATOCRIT 44.3 % (41-53); HEMOGLOBIN 14.9 g/dL (13.5-17.5); LYMPHOCYTES # (AUTO) 1.1 K/uL (1.0-4.8); LYMPHOCYTES % (AUTO) 20.7 % (22.0-44.0); MEAN CORPUSCULAR HEMOGLOBIN 33.5 pg (26.0-34.0); MEAN CORPUSCULAR HGB CONC 33.7 G/dL (31.0-37.0); MEAN CORPUSCULAR VOLUME 99 fL (80-100); MONOCYTES # (AUTO) 0.6 K/uL (0.1-1.0); MONOCYTES % (AUTO) 11.4 % (2.0-9.0); NEUTROPHILS # (AUTO) 3.2 K/uL (1.8-7.7); NEUTROPHILS % (AUTO) 62.3 % (40.0-70.0); PLATELET COUNT (AUTO) 371 K/uL (150-450); RED BLOOD CELL COUNT(AUTO) 4.46 MIL/uL (4.50-5.90); RED CELL DISTRIBUTION WIDTH 13.6 % (11.5-14.5)
[2018-12-17 08:53] LABS: HEMOGLOBIN A1C 5.7 % (4.5-6.2)
[2018-12-17 09:19] LABS: ALANINE AMINOTRANSFERASE 25 U/L (12-78); ALBUMIN 3.7 g/dL (3.4-5.0); ALKALINE PHOSPHATASE 84 U/L (46-116); ANION GAP 13 mmol/L (8-16); ASPARTATE AMINOTRANSFERASE 28 U/L (15-37); BILIRUBIN,TOTAL 0.3 mg/dL (0.1-1.0); CALCIUM, TOTAL 9.4 mg/dL (8.8-10.5); CARBON DIOXIDE 26 mmol/L (22-29); CHLORIDE 100 mmol/L (98-107); CHOL/HDL RATIO 4.6 (4.2-7.3); CHOLESTEROL 276 mg/dL (131-200); CREATININE 1.04 mg/dL (0.60-1.30); FREE T4 (FREE THYROXINE) 0.63 ng/dL (0.76-1.46); GLOMERULAR FILTR. RATE CALC > 60 mL/min (>60); GLUCOSE,RANDOM 94 mg/dL (70-110); HDL CHOLESTEROL 60 mg/dL (40-60); LDL CHOL (CALC.) 188 mg/dL (0-130); POTASSIUM 4.5 mmol/L (3.5-5.1); SODIUM SERUM 139 mmol/L (136-145); THYROID STIMULATING HORMONE 2.62 uIU/mL (0.36-3.74); TOTAL PROTEIN, SERUM 7.4 g/dL (6.4-8.2); TRIGLYCERIDES 138 mg/dL (15-150); UREA NITROGEN, BLOOD 24 mg/dL (7-18)
[2018-12-17] MEDS: AmLODIPine BESYLATE 5 MG TABLET PO SCH (09:33)
[2018-12-17] MEDS: CarBAMazepine 200 MG TABLET PO SCH (09:33)
[2018-12-17] MEDS: HYDROCHLOROTHIAZIDE 25 MG TABLET PO SCH (09:33)
[2018-12-17] MEDS: LevETIRAcetam 250 MG TABLET PO SCH (09:34)
[2018-12-17] MEDS: LORazepam 2 MG TABLET PO PRN (09:42)
[2018-12-17] MEDS ORDERED: TraMADol HCL 50 MG TABLET PO PRN (09:45)
[2018-12-17 10:54] VITALS: BP 145/79
[2018-12-17] MEDS ORDERED: QUET200T5 PO ×2 (14:22→14:39)
[2018-12-17] MEDS ORDERED: LEVE500S9 PO (14:22)
== END 2018-12-17 15:40 | disposition home or self-care (01) | DRG 885 ==
LOC: B2X 14:00
DX: F25.1 Schizoaffective disorder, depressive type (principal); R45.851 Suicidal ideations; F33.2 Major depressive disorder, recurrent severe without psychotic features; G40.909 Epilepsy, unspecified, not intractable, without status epilepticus; G89.29 Other chronic pain; I10 Essential (primary) hypertension; M19.90 Unspecified osteoarthritis, unspecified site; F15.10 Other stimulant abuse, uncomplicated; F41.9 Anxiety disorder, unspecified; M54.9 Dorsalgia, unspecified; Z79.899 Other long term (current) drug therapy; Z71.51 Drug abuse counseling and surveillance of drug abuser
CPT/HCPCS: 80307; 83036; 84436; 84439; 84443